=== PATIENT | male | born 1940 | race Caucasian/White ===

== ENCOUNTER → 2020-04-08 | Outpatient (CLI) | payer MEDICARE ==
--- NOTE | 2020-04-08 17:02 | REP ---
INDICATION: R13.10 DYSPHAGIA. COMPARISON: None. TECHNIQUE: The procedure was performed by Patricia Boggs [facility], under the direct supervision of Dr. Orona. The procedure was performed with Deb Powers from speech pathology present. 5 ml aliquots of honey, pudding, puree, and soft food consistency barium was administered. FINDINGS: Penetration was visualized with honey thick consistency barium that led to aspiration of the residue. The detailed report of this examination will be provided by speech pathology. IMPRESSION: Penetration that led to aspiration with honey thick consistency barium, a complete detailed report will be provided by speech pathology. 3.6 minutes of fluoroscopy time was utilized for this procedure. Some fluoroscopic images are performed with last image hold technology. These images require no additional radiation <Electronically signed by Patricia Boggs > 04/08/20 [id number] <Electronically signed by Shoaib Orona > 04/08/20 [id number]
== END ==
LOC: M ST 14:47
PROVIDERS: ATTEND Nurse Practitioner Family
DX: R13.10 Dysphagia, unspecified (principal)